=== PATIENT | female | born 1975 | race Two or more races ===

== ENCOUNTER 2020-02-04 22:03 | Emergency (ER) | payer MEDICAID, OTHER ==
[~2020-02-04] VITALS: Ht 157.5 cm; Wt 81.7 kg
[2020-02-04] MEDS ORDERED: KETOROLAC 30 MG/1 ML ONE (22:21)
[2020-02-04] MEDS ORDERED: ONDANSETRON 2MG/ML, 2ML ONE (22:21)
[2020-02-04] MEDS ORDERED: LORazepam 2 MG/ML, 1ML ONE (22:22)
[2020-02-04] MEDS ORDERED: KETOROLAC 30 MG/1 ML IVPush ONE (22:30)
[2020-02-04] MEDS ORDERED: LORazepam 2 MG/ML, 1ML IVPush ONE (22:30)
[2020-02-04] MEDS ORDERED: ONDANSETRON 2MG/ML, 2ML IVPush ONE (22:30)
--- NOTE | 2020-02-04 22:40 | NUR ---
Task RN: PIV placed, labs drawn, medicated per emar
[2020-02-04 22:49] LABS: ALANINE AMINOTRANSFERASE 18 U/L (12-78); ALBUMIN 4.2 g/dL (3.4-5.0); ANION GAP 8 mmol/L (5-15); BASOPHILS % (AUTO) 0 % (0-1); CALCIUM 9.3 mg/dL (8.5-10.1); CHLORIDE 104 mmol/L (98-107); CREATININE 0.96 mg/dL (0.55-1.02); EOSINOPHILS % (AUTO) 0 % (1-7); LYMPHOCYTES % (AUTO) 6 % (22-44); MEAN CORPUSCULAR HEMOGLOBIN 29.6 pg (27.0-34.8); MEAN CORPUSCULAR HGB CONC 33.5 g/dL (32.4-35.8); MEAN PLATELET VOLUME 8.1 fL (7.4-10.4); MONOCYTES % (AUTO) 5 % (2-9); NEUTROPHILS % (AUTO) 89 % (42-75); PLATELET COUNT 207 x10^3/uL (130-400); RED BLOOD COUNT 4.61 x10^6/uL (3.82-5.3); RED CELL DISTRIBUTION WIDTH 12.8 % (9.6-15.2)
[2020-02-04 22:52] LABS: ALKALINE PHOSPHATASE 65 U/L (45-117); BILIRUBIN,TOTAL 1.4 mg/dL (0.2-1.0); TOTAL PROTEIN 8.6 g/dL (6.4-8.2)
--- NOTE | 2020-02-04 22:58 | NUR ---
patient to bathroom with steady gait.
--- NOTE | 2020-02-04 23:00 | NUR ---
urine sent to lab. more warm blankets provided.
[2020-02-04 23:23] LABS: HCG UR SG 1.009 (1.003-1.030); MICROSCOPIC AUTO
[2020-02-04 23:25] LABS: MD SCAN
[2020-02-04] MEDS ORDERED: CEFTRIAXONE PMX 1GM/50ML 50 ML IV ONE (23:30)
[2020-02-04] MEDS ORDERED: MORPHINE SULFATE 4 MG/ML, 1ML ONE (23:30)
[2020-02-04] MEDS ORDERED: MORPHINE SULFATE 4 MG/ML, 1ML IVPush PRN (23:30)
[2020-02-04] MEDS ORDERED: CEFTRIAXONE PMX 1GM/50ML 50 ML ONE (23:30)
--- NOTE | 2020-02-04 23:37 | NUR ---
patient re-medicated for pain. antibiotic started.
[2020-02-05 00:07] VITALS: BP 158/83
--- NOTE | 2020-02-05 00:07 | NUR ---
re-evaluation done. patient discharged with prescription and instruction. verbalized understanding.
[2020-02-06] MEDS ORDERED: TOPI25CA3 PO (19:38)
[2020-02-06] MEDS ORDERED: ATOR20TA37 PO (19:38)
[2020-02-06] MEDS ORDERED: ASPI81TA45 PO (19:38)
[2020-02-06] MEDS ORDERED: PROM25TA10 PO (19:38)
== END 2020-02-05 00:29 | disposition home or self-care (01) ==
LOC: ED 23:30
DX: N30.01 Acute cystitis with hematuria (principal); M54.5 Low back pain; E78.00 Pure hypercholesterolemia, unspecified; G43.909 Migraine, unspecified, not intractable, without status migrainosus; Z90.49 Acquired absence of other specified parts of digestive tract; Z90.710 Acquired absence of both cervix and uterus
CPT/HCPCS: 36415; 80053; 81001; 81025; 83690; 85025; 87077; 87086; 96365; 96375; 99284; J0696; J1885; J2060; J2270; J2405; 87186

== ENCOUNTER 2020-05-13 20:17 | Emergency (ER) | payer MEDICAID ==
[~2020-05-13] VITALS: Ht 157.5 cm; Wt 81.7 kg
[~2020-05-13 20:17] MED LIST: ASPI81TA45 PO; ATOR20TA37 PO; CEFD300C37 PO; METR-90 PO; PROM25TA10 PO; TOPI25CA3 PO
[2020-05-13 20:19] VITALS: BP 131/89
== END 2020-05-13 22:26 | disposition home or self-care (01) ==
LOC: ED 21:28
DX: S86.811A Strain of other muscle(s) and tendon(s) at lower leg level, right leg, initial encounter (principal); E78.00 Pure hypercholesterolemia, unspecified; Z90.49 Acquired absence of other specified parts of digestive tract; Z90.710 Acquired absence of both cervix and uterus; Z87.891 Personal history of nicotine dependence; X58.XXXA Exposure to other specified factors, initial encounter; Y93.89 Activity, other specified; Y92.89 Other specified places as the place of occurrence of the external cause; Y99.8 Other external cause status
CPT/HCPCS: 99283